=== PATIENT | female | born 1950 | race Caucasian/White ===

== ENCOUNTER 2019-05-17 19:28 | Inpatient (IN) ==
--- NOTE | 2019-05-17 19:45 | Emergency Department Note ---
ED Disposition Clinical Impression: Hypokalemia Acute renal failure Qualifiers: Acute renal failure type: unspecified Qualified Code(s): N17.9 - Acute kidney failure, unspecified Contusion of left hip Qualifiers: Encounter type: initial encounter Qualified Code(s): S70.02XA - Contusion of l eft hip, initial encounter Leukocytosis Qualifiers: Leukocytosis type: unspecified Qualified Code(s): D72.829 - Elevated white blood cell count, unspecified Constipation Qualifiers: Constipation type: unspecified constipation type Qualified Code(s): K59.00 - Constipation, unspecified Disposition: Admitted As Inpatient Condition on Discharge: Serious Referrals: Provider,Referral, MD [Referring] - - Critical Care Critical Care Time: Yes Attestation: On 05/17/19, the high probability of a clinically significant, sudden or life threatening deterioration of the following system(s) required my full and direct attention, intervention and personal management. The time I documented below is in addition to time spent performing reported procedures but includes the following listed in this critical care notation. Total Critical Care Time: 35 Vital system(s) involved:: Metabolic Failure, Renal Failure My critical care processes included: Assessment & monitoring of V/S, Initial and Re-exams, Data Review/Interpretation, Coordinating Care, Medication Orders and management, Documentation Medical Decision Making - Luis Alberto Inquiry Pt receiving controlled substance: No Vital Signs: 05/17/19 19:29 05/17/19 19:58 05/17/19 21:41 Temperature 97.9 F Temperature Source Oral Pulse Rate [Right Apical] 112 H 109 H 108 H Respiratory Rate 20 Blood Pressure [Right Arm] 119/72 128/79 111/43 L Blood Pressure Mean [Right Arm] 87 95 65 02 Sat by Pulse Oximetry 93 L 95 95 Oxygen Delivery Method Nasal Cannula Oxygen Flow Rate (LPM) 2 05/17/19 22:00 05/17/19 22:29 Temperature Temperature Source Pulse Rate [Right Apical] 95 H 98 H Respiratory Rate Blood Pressure [Right Arm] 139/73 139/73 Blood Pressure Mean [Right Arm] 95 95 02 Sat by Pulse Oximetry 95 96 Oxygen Delivery Method Oxygen Flow Rate (LPM) - Lab Data Lab Results 05/17/19 19:34: Urine Color Yellow, Urine Appearance Clear, Urine pH 5.0, Ur Specific [place] >= 1.030, Urine Protein 1+, Urine Glucose (UA) Negative, Urine Ketones Trace, Urine Blood Negative, Urine Nitrate Negative, Urine Bilirubin Negative, Urine Urobilinogen 1.0, Ur Leukocyte Esterase Negative, Urine WBC Occasional, Ur Squamous Epith Cells Occasional, Urine Bacteria 2+ 05/17/19 19:35: WBC 21.6 H*, RBC 5.94 H, Hgb 17.2 H, Hct 55.0 H, MCV 92.5, MCH 28.9, MCHC 31.3 L, RDW 13.5, Plt Count 244, MPV 10.4, Neut % (Auto) 82.0 H, Lymph % (Auto) 12.4, Tripp % (Auto) 5.1, Eos % (Auto) 0.3, Baso % (Auto) 0.3, Neut # (Auto) 17.7 H, Lymph # (Auto) 2.7, Tripp # (Auto) 1.1 H, Eos # (Auto) 0.1, Baso # (Auto) 0.1, Total Counted 100, Neutrophils % (Manual) 80 H, Lymphocytes % (Manual) 15, Monocytes % (Manual) 5, Platelet Estimate Normal, RBC Morphology Normal 05/17/19 19:35: Sodium 135 L, Potassium 2.6 L*, Chloride 91 L, Carbon Dioxide 27, Anion Gap 19.6 H, BUN 68 H, Creatinine 3.93 H, Estimated Creat Clear 23, Estimated GFR 11 L*, Est GFR ( Amer) 14 L*, Glucose 181 H, Calcium 10.0, Total Bilirubin 1.3 H, AST 31, ALT 33, Alkaline Phosphatase 97, Total Protein 9.7 H, Albumin 4.4, Globulin 5.3 H, Albumin/Globulin Ratio 0.8 L 05/17/19 19:35: Total Creatine Kinase 139 05/17/19 19:35: Magnesium 2.6 H 05/17/19 20:15: Lactate 1.6 Result diagrams: 05/17/19 19:35 05/17/19 19:35 Orders (Tests/Meds): ED MEDICATIONS Generic Name Dose Route Start Last Admin Trade Name Freq PRN Reason Stop Dose Admin Sodium Chloride 1,000 mls @ 999 mls/hr 05/17/19 19:45 05/17/19 19:40 Sod Chlor 0.9% 1000ml Bag IV 05/17/19 20:45 999 mls/hr .Q1H1M PARESH Administration ORDERS Category Date Time Status CT abdomen pelvis wo con Stat Cat Scan 05/17/19 20:[address] hip LT wo con Stat Cat Scan 05/17/19 20:56 Taken Lipase Stat Lab 05/17/19 22:38 Ordered Blood Culture Stat Micro 05/17/19 20:15 Received Urine Culture Stat Micro 05/17/19 19:34 Received - Radiology Data #1 Image(s): Chest, Hip Image Reviewed: Yes I reviewed the patient's radiology image Chest x-ray interpreted by Benjamin Jacob M.D. No infiltrate, pneumothorax, pleural effusion, or wide mediastinum. Elevated right diaphragm. Hip x-ray interpreted by Benjamin Jacob MD. Negative for fracture, dislocation, or foreign body. - CT Data CT Scan: Abdomen, Pelvis, Other (Left hip) Time Received: 22:[address] Reviewed: Yes: I have viewed the radiologist's interpretation Findings Narrative: CT scan interpreted by [facility] radiologist. Faxed report received and reviewed: Minimal diverticulosis coli, no findings to suggest diverticulitis. The colon is diffusely distended with gas and fecal material, possible colonic ileus or constipation. No obstructing stones or hydronephrosis. Prominent fatty liver, distended gallbladder and slightly dilated common duct up to 9 mm, but no calcified obstructing stone seen. May be senile ductal ectasia. Left hip: No fracture or dislocation. Likely chronic calcific tendinopathy at the origin of the common hamstring tendon, less likely tiny cortical avulsions. Degenerative disc disease and spondylosis greatest at L5-S1. - ECG Data Tracing #1 EKG interpreted by Benjamin Jacob MD: Rhythm: sinus tachycardia Rate: 112 [place]: Left Ectopy: Premature ventricular contraction Conduction: normal ST Segment Changes: none T Wave Changes: none Q Waves: none No evidence of acute ischemia or injury - Physician Consults Physician Consulted: Anthony Time: 22:32 Reason -: Admission Comment/Response: Agrees to admit the patient to the hospital. We discussed the patient's clinical information, including history, exam, laboratory and radiology results and ED course. Per hospital procedure, I will write temporary bridge inpatient orders on the patient. Specific orders requested by the admitting physician: Normal saline with 20 mEq of potassium per liter. Recheck labs in the morning. No antibiotics. He will address constipation in the morning. General Adult HPI - General Chief complaint: Fall Stated complaint: fall Time Seen by Provider: 05/17/19 20:13 Mode of Arrival: EMS Limitations: No Limitations Description of Symptoms (Recalled from ER Triage Doc. by RN): pt c/o falling on the 05/[address] and crawling up to her house. pt states she has been ea ting only pineapple and drinking watre since then because it hurts too much to stand on her left hip. PT only c/o being very thirsty and L hip pain. - History of Present Illness HPI narrative: Patient states that she fell in her driveway on May 01, injuring her left hip. She denies any other injuries. She says that since then she has pain when she bears weight on her left hip. She says that she has to use objects to support her to get around. She says she has not been eating much since then because of this. She has been drinking fluids but says if she drinks too much she vomits. Decreased urinary output. No bowel movement in 2 weeks. Denies head or neck injury. Denies back injury. Denies fever, cough, URI symptoms. - Related Data Allergies Allergy/AdvReac Type Severity Reaction Status Date / Time INGREDIENT: NO KNOWN - NO Allergy Unknown Uncoded 10/27/17 15:20 KNOWN DRUG ALLERGY [facility] History - Hepatitis A Screen Drug use history?: No High risk sexual behaviors?: No History of sexually transmitted infection?: No Currently employed?: No Childcare worker?: No Do you have indoor plumbing?: Yes Do you have electricity?: Yes Attestation statement:: This patient has been screened for Hepatitis A risk factors. I have reviewed the patient's past medical history: Yes - Social History Alcohol Intake: never Occupational Status: retired ROS Obtained: Yes All systems reviewed & no additional complaints - Constitutional Constitutional: Denies fever(s) - Cardiovascular Cardiovascular: Denies chest pain - Respiratory Respiratory: No dyspnea - Gastrointestinal Gastrointestingal: Reports: constipation, nausea, vomiting. Denies: abdominal pain, diarrhea - Genitourinary Male Genitourinary: Reports as per HPI, Reports decreased urination - Musculoskeletal Musculoskeletal: Reports joint pain (Left hip) Physical Exam - General General appearance: alert, in no apparent distress - Head Head exam: atraumatic, normocephalic - Eye Eye exam: Present: normal appearance, PERRL, EOMI - ENT ENT exam: Present: mucous membranes dry - Neck Neck exam: Present: normal inspection, trachea midline - Chest Chest inspection: Present: normal inspection, symmetric chest wall rise - Respiratory Respiratory exam: Present: normal lung sounds bilaterally, respiratory distress - Cardiovascular Cardiovascular exam: Present: regular rate, normal rhythm, normal heart sounds - Abdominal Exam Abdominal exam: Present: soft, normal bowel sounds. Absent: distention, tenderness - Extremities Exam Extremities exam: Present: normal inspection, full ROM, tenderness (Left posterior hip), normal capillary refill, other (Full range of motion left hip without any apparent pain.) - Neurological Exam Neurological exam: Present: alert, oriented X3, CN II-XII intact. Absent: motor sensory deficit - Psychiatric Psychiatric exam: Present: normal affect, normal mood - Skin Skin exam: Present: warm, dry - Other Other exam information: No shortening or malrotation of left lower extremity. Normal pedal pulses.
[2019-05-17 19:49] LABS: Basophils # 0.1 K/mm3 (0-0.2); Basophils % 0.3 % (0.1-2.0); Eosinophils # 0.1 K/mm3 (0.0-0.4); Eosinophils % 0.3 % (0.1-12.0); Hemoglobin 17.2 g/dL (12.2-16.2); Lymphocytes # 2.7 K/mm3 (0.7-4.5); Lymphocytes % 12.4 % (10-50); Mean Corpuscular HGB Conc 31.3 g/dL (31.8-35.4); Mean Corpuscular Volume 92.5 fl (81-99); Mean Platelet Volume 10.4 fl (7.4-10.4); Monocytes # 1.1 K/mm3 (0.1-1.0); Monocytes % 5.1 % (1.7-9.3); Neutrophils # 17.7 K/mm3 (1.8-7.8); Platelet Count 244 K/mm3 (142-424); Red Blood Count 5.94 M/mm3 (4.20-5.40); Red Cell Distribution Width 13.5 % (11.5-17.5); White Blood Count 21.6 K/mm3 (4.8-10.8)
[2019-05-17 20:02] LABS: Albumin Level 4.4 gm/dL (3.4-5.0); Albumin/Globulin Ratio 0.8 (1.1-1.8); Anion Gap 19.6 mEq/L (5-15); Bilirubin,Total 1.3 mg/dL (0.2-1.0); Globulin 5.3 gm/dl (1.3-3.2); Total Protein,Serum 9.7 gm/dL (6.4-8.2)
[2019-05-17 20:05] LABS: Microscopic, Urine URINE MICROSCOPIC (MICROSCOPIC)
[2019-05-17 20:09] LABS: Appearance,Urine CLEAR (Clear); Blood, Urine Negative (Negative); Color,Urine YELLOW (Yellow); Glucose,Urine (UA) Negative (Negative); Ketones,Urine TRACE (Negative); Leukocyte Esterase,Urine Negative (Negative); Protein,Urine 1+ (Negative); Specific Gravity, Urine >= 1.030 (1.005-1.030)
[2019-05-17 20:15] LABS: Bilirubin,Urine Negative (Negative)
[2019-05-17 20:39] LABS: Bacteria,Urine 2+ /lpf; Squamous Epithelial Cell,Urine Occasional #/hpf (0-5); WBC,Urine Occasional #/hpf (0-3)
[2019-05-17 21:02] LABS: Lymphocytes % 15 % (10-50); Monocytes % 5 % (2-9); Neutrophils % 80 % (42-76); Total Cells Counted 100
[2019-05-17 21:03] LABS: RBC Morphology Normal
[2019-05-17 23:32] LABS: Free T4 (Free Thyroxine) 1.46 ng/dl (0.76-1.46); Thyroid Stimulating Hormone 1.11 uIU/ml (0.358-3.740)
[2019-05-18 06:05] LABS: Basophils # 0.1 K/mm3 (0-0.2); Basophils % 0.6 % (0.1-2.0); Eosinophils # 0.2 K/mm3 (0.0-0.4); Eosinophils % 0.9 % (0.1-12.0); Hematocrit 45.2 % (37.0-47.0); Lymphocytes # 2.9 K/mm3 (0.7-4.5); Lymphocytes % 17.4 % (10-50); Mean Corpuscular HGB Conc 31.6 g/dL (31.8-35.4); Mean Platelet Volume 9.9 fl (7.4-10.4); Monocytes # 0.8 K/mm3 (0.1-1.0); Monocytes % 4.7 % (1.7-9.3); Neutrophils # 12.6 K/mm3 (1.8-7.8); Neutrophils % 76.3 % (37.0-80.0); Platelet Count 179 K/mm3 (142-424); Red Blood Count 4.86 M/mm3 (4.20-5.40); Red Cell Distribution Width 13.5 % (11.5-17.5); White Blood Count 16.5 K/mm3 (4.8-10.8)
[2019-05-18 07:01] LABS: Anion Gap 13.4 mEq/L (5-15)
[2019-05-18 07:32] LABS: Calcium 8.4 mg/dL (8.5-10.1)
[2019-05-18 07:36] LABS: Hemoglobin 14.4 g/dL (12.2-16.2)
--- NOTE | 2019-05-18 08:58 | Pharmacy Consult Notes ---
[facility] Pharmacy VTE Monitoring - Patient Demographics Admission date: 05/18/19 Report Date: 05/18/19 Time: 08:58 Allergies/Adverse Reactions: Patient Allergies No Known Allergies Allergy (Unverified 05/18/19 07:56) Height: 1.73 m Weight: 105.29 kg Patient Problems: Current Active Problems (Updated 05/17/19 @ 22:34 by Benjamin Jacob MD) Acute renal failure (Acute) Contusion of left hip (Acute) Leukocytosis (Acute) Hypokalemia (Acute) Constipation (Acute) - VTE Risk Labs: VTE Related Lab Results Hgb 14.4 g/dL (12.2-16.2) D 05/18/19 05:40 Hct 45.2 % (37.0-47.0) 05/18/19 05:40 Plt Count 179 K/mm3 (142-424) D 05/18/19 05:40 BUN 56 mg/dL (7-18) H 05/18/19 05:40 Creatinine 2.15 mg/dL (0.55-1.02) H D 05/18/19 05:40 Estimated Creat Clear 40 mL/min (50-200) 05/18/19 05:40 Was VTE Risk Assessment Performed: Yes VTE Score: 6 VTE Risk Level: Moderate Risk Clinical Trial Participant: No - Prophylaxis VTE Prophylaxis Ordered?: Yes Types of VTE Prophylaxis: TEDS Knee High Location of Applied Device: Bilateral Lower Extremeties
--- NOTE | 2019-05-18 09:13 | History & Physical Report ---
*Admission Date: 05/18/19 <ParekhAnabel - 05/18/19 09:27> *Chief complaint: Unable to bear weight on her left leg. <IglesiaCandaceAnabel 05/18/19 09:27> *History of present illness: Ms. Rain is a 68-year-old patient with a history of depression, hypothyroidism, hypertension, GERD, and hyperlipidemia who was brought to [facility] emergency room via EMS when she was unable to walk for 2 to 3 weeks. She states she laid in a lump for this time and ate and drank minimally. She states her bowels did not move. She is unable to tell me if she was incontinent of urine or if she was able to go to the bathroom. She describes vomiting after drinking water. She describes eating pineapple. Patient states this started about 3 weeks ago when she slid to the ground landing on her buttocks. She states it was not a fall. She was unable to get up and walk and therefore she scooted to her home. She states she always locks all the doors and therefore no one could get in. She did finally find her phone and was able to contact a friend who notified EMS. They were able to get in through a window and bring her to the hospital. With evaluation in the emergency room x-rays and CTs did not reveal any fractures. She was found to be in acute renal failure and with hypokalemia. She was thus admitted for further evaluation and treatment. This a.m. patient appears comfortable. She was brought her breakfast which she did not like. She denies nausea and has not vomited since admission. She has a Mcarthur catheter. Bowels have not moved. <Anabel Parekh - 05/18/19 09:27> [facility] History Medical History: Reports:: Hyperlipidemia, Hypertension Denies:: Cancer, Diabetes Mellitus Type 1, Diabetes Mellitus Type 2, Internal Pacemaker, MRSA <Anabel Parekh 05/18/19 09:27> *Have you ever received a pneumonia vaccine?: No <Anabel Parekh 05/18/19:27> *Have you received a flu vaccine this season?: No <Anabel Parekh 05/18/19 09:27> Other Surgeries: Yes: Cardiac Catheterization. No: Pacemaker <Anabel Parekh 07/10/19 09:27> - *Social History Alcohol Intake: never <Anabel Parekh - 05/18/19 09:27> *Occupational Status:: retired <Anabel Parekh - 05/18/19 09:27> Housing: other <Anabel Parekh - 05/18/19 09:27> *Travel in the last 8 weeks: None <Anabel Parekh - 05/18/19 09:27> - Psychiatric History Expresses thoughts of harming self/others: None <Anabel Parekh - 05/18/19 09:27> Suicide Plan Description: No Plan <Anabel Parekh - 05/18/19 09:27> Family Hx:: Stroke <Candace Parekhhy - 05/18/19 09:27> Meds Home Medications Medication Instructions Recorded Confirmed Type Citalopram Hydrobromide [Celexa] 20 mg PO BID 05/17/19 05/18/19 History Hydrocodone/Acetaminophen 1 each PO Q6HP PRN 05/17/19 05/18/19 History [Hydrocodone-Acetamin 7.5-300] Levothyroxine Sodium 25 mcg PO DAILY 05/17/19 05/17/19 History [Levothyroxine 25mcg (0.025mg) Tab] Lovastatin 40 mg PO DAILY 05/17/19 05/17/19 History Omeprazole [Omeprazole 20mg 20 mg PO DAILY 05/17/19 05/17/19 History Capsule] hydroCHLOROthiazide [HCTZ 25mg 25 mg PO DAILY 05/17/19 05/17/19 History tab] <Ubaldo Cruz - 05/18/19 09:57> Allergies Allergy/AdvReac Type Severity Reaction Status Date / Time No Known Allergies Allergy Unverified 05/18/19 07:56 <Ubaldo Cruz - 05/18/19 09:57> Exam Vital signs and Labs for Last 24 Hours: Temp Pulse Resp BP Pulse Ox 99.9 F H 106 H 17 114/58 L 91 L 05/18/19 08:00 05/18/19 08:00 05/18/19 08:00 05/18/19 08:00 05/18/19 08:00 Laboratory Results - last 24 hr 05/17/19 19:34: Urine Color Yellow, Urine Appearance Clear, Urine pH 5.0, Ur Specific Beals >= 1.030, Urine Protein 1+, Urine Glucose (UA) Negative, Urine Ketones Trace, Urine Blood Negative, Urine Nitrate Negative, Urine Bilirubin Negative, Urine Urobilinogen 1.0, Ur Leukocyte Esterase Negative, Urine WBC Occasional, Ur Squamous Epith Cells Occasional, Urine Bacteria 2+ 05/17/19 19:35: WBC 21.6 H*, RBC 5.94 H, Hgb 17.2 H, Hct 55.0 H, MCV 92.5, MCH 28.9, MCHC 31.3 L, RDW 13.5, Plt Count 244, MPV 10.4, Neut % (Auto) 82.0 H, Lymph % (Auto) 12.4, [place] % (Auto) 5.1, Eos % (Auto) 0.3, Baso % (Auto) 0.3, Neut # (Auto) 17.7 H, Lymph # (Auto) 2.7, [place] # (Auto) 1.1 H, Eos # (Auto) 0.1, Baso # (Auto) 0.1, Total Counted 100, Neutrophils % (Manual) 80 H, Lymphocytes % (Manual) 15, Monocytes % (Manual) 5, Platelet Estimate Normal, RBC Morphology Normal 05/17/19 19:35: Sodium 135 L, Potassium 2.6 L*, Chloride 91 L, Carbon Dioxide 27, Anion Gap 19.6 H, BUN 68 H, Creatinine 3.93 H, Estimated Creat Clear 23, Estimated GFR 11 L*, Est GFR ( Amer) 14 L*, Glucose 181 H, Calcium 10.0, Total Bilirubin 1.3 H, AST 31, ALT 33, Alkaline Phosphatase 97, Total Protein 9.7 H, Albumin 4.4, Globulin 5.3 H, Albumin/Globulin Ratio 0.8 L 05/17/19 19:35: Total Creatine Kinase 139 05/17/19 19:35: Magnesium 2.6 H 05/17/19 19:35: Lipase 172, TSH 1.11, Free T4 1.46 05/17/19 20:15: Lactate 1.6 05/18/19 05:40: WBC 16.5 H, RBC 4.86, Hgb 14.4 D, Hct 45.2, MCV 93.0, MCH 29.4, MCHC 31.6 L, RDW 13.5, Plt Count 179 D, MPV 9.9, Neut % (Auto) 76.3, Lymph % (Auto) 17.4, [place] % (Auto) 4.7, Eos % (Auto) 0.9, Baso % (Auto) 0.6, Neut # (Auto) 12.6 H, Lymph # (Auto) 2.9, [place] # (Auto) 0.8, Eos # (Auto) 0.2, Baso # (Auto) 0.1 05/18/19 05:40: Sodium 136, Potassium 2.4 L*, Chloride 98, Carbon Dioxide 27, Anion Gap 13.4, BUN 56 H, Creatinine 2.15 H D, Estimated Creat Clear 40, Estimated GFR 23 L, Est GFR ( Amer) 27 L D, Glucose 110 H D, Calcium 8.4 L D <Ubaldo Cruz - 05/18/19 09:57> Temp Pulse Resp BP Pulse Ox 99.9 F H 106 H 17 114/58 L 91 L 05/18/19 08:00 05/18/19 08:00 05/18/19 08:00 05/18/19 08:00 05/18/19 08:00 Laboratory Results - last 24 hr 05/17/19 19:34: Urine Color Yellow, Urine Appearance Clear, Urine pH 5.0, Ur Specific Beals >= 1.030, Urine Protein 1+, Urine Glucose (UA) Negative, Urine Ketones Trace, Urine Blood Negative, Urine Nitrate Negative, Urine Bilirubin Negative, Urine Urobilinogen 1.0, Ur Leukocyte Esterase Negative, Urine WBC Occasional, Ur Squamous Epith Cells Occasional, Urine Bacteria 2+ 05/17/19 19:35: WBC 21.6 H*, RBC 5.94 H, Hgb 17.2 H, Hct 55.0 H, MCV 92.5, MCH 28.9, MCHC 31.3 L, RDW 13.5, Plt Count 244, MPV 10.4, Neut % (Auto) 82.0 H, Lymph % (Auto) 12.4, [place] % (Auto) 5.1, Eos % (Auto) 0.3, Baso % (Auto) 0.3, Neut # (Auto) 17.7 H, Lymph # (Auto) 2.7, [place] # (Auto) 1.1 H, Eos # (Auto) 0.1, Baso # (Auto) 0.1, Total Counted 100, Neutrophils % (Manual) 80 H, Lymphocytes % (Manual) 15, Monocytes % (Manual) 5, Platelet Estimate Normal, RBC Morphology Normal 05/17/19 19:35: Sodium 135 L, Potassium 2.6 L*, Chloride 91 L, Carbon Dioxide 27, Anion Gap 19.6 H, BUN 68 H, Creatinine 3.93 H, Estimated Creat Clear 23, Estimated GFR 11 L*, Est GFR ( Amer) 14 L*, Glucose 181 H, Calcium 10.0, Total Bilirubin 1.3 H, AST 31, ALT 33, Alkaline Phosphatase 97, Total Protein 9.7 H, Albumin 4.4, Globulin 5.3 H, Albumin/Globulin Ratio 0.8 L 05/17/19 19:35: Total Creatine Kinase 139 05/17/19 19:35: Magnesium 2.6 H 05/17/19 19:35: Lipase 172, TSH 1.11, Free T4 1.46 05/17/19 20:15: Lactate 1.6 05/18/19 05:40: WBC 16.5 H, RBC 4.86, Hgb 14.4 D, Hct 45.2, MCV 93.0, MCH 29.4, MCHC 31.6 L, RDW 13.5, Plt Count 179 D, MPV 9.9, Neut % (Auto) 76.3, Lymph % (Auto) 17.4, [place] % (Auto) 4.7, Eos % (Auto) 0.9, Baso % (Auto) 0.6, Neut # (Auto) 12.6 H, Lymph # (Auto) 2.9, [place] # (Auto) 0.8, Eos # (Auto) 0.2, Baso # (Auto) 0.1 05/18/19 05:40: Sodium 136, Potassium 2.4 L*, Chloride 98, Carbon Dioxide 27, Anion Gap 13.4, BUN 56 H, Creatinine 2.15 H D, Estimated Creat Clear 40, Estimated GFR 23 L, Est GFR ( Amer) 27 L D, Glucose 110 H D, Calcium 8.4 L D <Anabel Parekh - 05/18/19 09:27> I & O for Last 24 hours: Intake & Output 05/15/19 05/16/19 05/17/19 05/18/19 11:59 11:59 11:59 11:59 Intake Total 2753 / 2753 Output Total 500 / 500 Balance 2253 / 2253 Weight 232 lb 2 oz <Ubaldo Cruz - 05/18/19 09:57> Intake & Output 05/15/19 05/16/19 05/17/19 05/18/19 11:59 11:59 11:59 11:59 Intake Total 1160 / 1160 Output Total 500 / 500 Balance 660 / 660 Weight 232 lb 2 oz <Anabel Parekh - 05/18/19 09:27> Radiology Reports for the Last 24 Hours: 05/17/2019 hip x-ray IMPRESSION: No acute finding 05/17/2019 chest x-ray IMPRESSION: No acute finding 05/17/2019 CT of the abdomen and Pelvis IMPRESSION: 1. Distended gallbladder with mild prominence of the common bile duct. Gallbladder ultrasound may be of further value. 2. Mild amount of retained colonic feces. 3. Fatty liver 05/17/2019 CT of the left hip IMPRESSION: 1. No acute fracture. 2. Mild osteoarthritis of left hip <IglesiaAnabel - 05/18/19 09:27> - Constitutional no acute distress <Anabel Parekh - 05/18/19 09:27> Comments: Lying on her right side and appears comfortable <Anabel Parekh 05/18/19 09:27> - *Routine HEENT Exam Head: Present: normocephalic, atraumatic <Anabel Parekh - 05/18/19 09:27> Eye: Present: PERRL. Absent: conjunctival icterus, scleral injection <Anabel Parekh 05/18/19 09:27> ENT: Present: mucous membranes dry, oropharynx clear, nares patent <Anabel Parekh 05/18/19 09:27> - *Routine Neck Exam Present: supple. Absent: carotid bruit, lymphadenopathy, thyromegaly <Anabel Parekh 05/18/19 09:27> - *Routine Respiratory Exam Present: CTA bilaterally (Anteriorly and posteriorly) <Anabel Parekh 05/18/19 09:27> - *Routine Cardiovascular Exam Present: RRR <Anabel Parekh 05/18/19 09:27> - *Routine Abdominal Exam Present: soft (Diminished bowel sounds). Absent: tenderness, guarding <Anabel Parekh 05/18/19 09:27> Comments: Obese. Mcarthur catheter. <Anabel Parekh 05/18/19 09:27> - *Routine Extremities Exam Absent: edema, calf tenderness <Anabel Parekh 05/18/19 09:27> Comments: Moves her legs without difficulty. She is able to turn herself slowly in the bed. Left buttock tender to palpation. No edema or ecchymosis noted on hips buttocks or legs. <Anabel Parekh 05/18/19 09:27> - *Routine Skin Exam Present: erythema (Beneath the abdominal folds and groin area bilaterally; very inflamed) <Anabel Parekh 05/18/19 09:27> - *Routine Neurological Exam Present: alert, oriented X3 <Anabel Parekh 05/18/19 09:27> Assessment and Plan (1) Skin candidiasis Current visit: Yes Status: Acute Category: Medical Code(s): B37.2 - Candidiasis of skin and nail (2) Acute renal failure Current visit: Yes Status: Acute Qualifiers: Acute renal failure type: unspecified Qualified Code(s): N17.9 - Acute kidney failure, unspecified Category: Medical Code(s): N17.9 - Acute kidney failure, unspecified (3) Constipation Current visit: Yes Status: Acute Qualifiers: Constipation type: unspecified constipation type Qualified Code(s): K59.00 - Constipation, unspecified Category: Medical Code(s): K59.00 - Constipation, unspecified (4) Contusion of left hip Current visit: Yes Status: Acute Qualifiers: Encounter type: initial encounter Qualified Code(s): S70.02XA - Contusion of left hip, initial encounter Category: Medical Code(s): S70.02XA - Contusion of left hip, initial encounter (5) Hypokalemia Current visit: Yes Status: Acute Category: Medical Code(s): E87.6 - Hypokalemia (6) Leukocytosis Current visit: Yes Status: Acute Qualifiers: Leukocytosis type: unspecified Qualified Code(s): D72.829 - Elevated white blood cell count, unspecified Category: Medical Code(s): D72.829 - Elevated white blood cell count, unspecified (7) Vomiting Current visit: Yes Status: Acute Category: Medical Code(s): R11.10 - Vomiting, unspecified (8) Hypothyroidism Current visit: Yes Status: Chronic Category: Medical Code(s): E03.9 - Hypothyroidism, unspecified (9) Hypertension Current visit: Yes Status: Chronic Category: Medical Code(s): I10 - Essential (primary) hypertension (10) Depression Current visit: Yes Status: Chronic Category: Medical Code(s): F32.9 - Major depressive disorder, single episode, unspecified (11) GERD (gastroesophageal reflux disease) Current visit: Yes Status: Chronic Category: Medical Code(s): K21.9 - Gastro-esophageal reflux disease without esophagitis <Anabel Parekh - 05/18/19 09:08> (1) Fall at home Current visit: Yes Status: Acute Category: Medical Code(s): W19.XXXA - Unspecified fall, initial encounter; Y92.009 - Unspecified place in unspecified non-institutional (private) residence as the place of occurrence of the external cause (2) Contusion of left hip Current visit: Yes Status: Acute Qualifiers: Encounter type: initial encounter Qualified Code(s): S70.02XA - Contusion of left hip, initial encounter Category: Medical Code(s): S70.02XA - Contusion of left hip, initial encounter (3) Impaired mobility Current visit: Yes Status: Acute Category: Medical Code(s): Z74.09 - Other reduced mobility (4) Acute renal failure Current visit: Yes Status: Acute Qualifiers: Acute renal failure type: unspecified Qualified Code(s): N17.9 - Acute kidney failure, unspecified Category: Medical Code(s): N17.9 - Acute kidney failure, unspecified (5) Hypokalemia Current visit: Yes Status: Acute Category: Medical Code(s): E87.6 - Hypokalemia (6) Skin candidiasis Current visit: Yes Status: Acute Category: Medical Code(s): B37.2 - Candidiasis of skin and nail (7) Constipation Current visit: Yes Status: Acute Qualifiers: Constipation type: unspecified constipation type Qualified Code(s): K59.00 - Constipation, unspecified Category: Medical Code(s): K59.00 - Constipation, unspecified (8) Leukocytosis Current visit: Yes Status: Acute Qualifiers: Leukocytosis type: unspecified Qualified Code(s): D72.829 - Elevated white blood cell count, unspecified Category: Medical Code(s): D72.829 - Elevated white blood cell count, un specified (9) Vomiting Current visit: Yes Status: Acute Category: Medical Code(s): R11.10 - Vomiting, unspecified (10) Hypothyroidism Current visit: Yes Status: Chronic Category: Medical Code(s): E03.9 - Hypothyroidism, unspecified (11) Hypertension Current visit: Yes Status: Chronic Category: Medical Code(s): I10 - Essential (primary) hypertension (12) Depression Current visit: Yes Status: Chronic Category: Medical Code(s): F32.9 - Major depressive disorder, single episode, unspecified (13) GERD (gastroesophageal reflux disease) Current visit: Yes Status: Chronic Category: Medical Code(s): K21.9 - Gastro-esophageal reflux disease without esophagitis <AnthonyUbaldo Ashok - 05/18/19 09:57> - Assessment and plan all Dx Assessment and Plan for all problems:: Patient seen and examined. She denies pain while lying in bed but has difficulty ambulating due to hip pain. SHe does not like the cardiac diet. Her renal failure appears to be acute pre-renal related to dehydration. No baseline labs for comparison but repeat labs this AM are improving with hydration with the exception of her hypokalemia which will addressed further Will obtain PT and ortho consults today. Monitor labs. <Ubaldo Cruz - 05/18/19 09:57> Orthopedic consult. Physical therapy to see patient today. Rounds of IV potassium and will start p.o. potassium. Continue with IV fluids. Monitor CBC and BMP. <Anabel Parekh - 05/18/19 09:27>
[2019-05-18 10:13] LABS: Eosinophils % 1 % (0-3); Lymphocytes % 20 % (10-50); Monocytes % 4 % (2-9); Neutrophils % 75 % (42-76); Total Cells Counted 100
[2019-05-18 10:14] LABS: RBC Morphology Normal
--- NOTE | 2019-05-18 14:06 | Consult Report ---
*Admission Date: 05/18/19 *Reason for consult:: Unable to weight-bear on left leg following a fall 2 weeks ago *History of present illness: Ms. Rain is a 68-year-old patient with a history of depression, hypot hyroidism, hypertension, GERD, and hyperlipidemia who was brought to [facility] emergency room via EMS yesterday with complaints of left hip pain and difficulty weightbearing on the left lower extremity. She states she injured her left hip region about 2 or 3 weeks ago when she settled down landing on her buttocks. Following this she was unable to get up and walk and therefore she scooted around the house. She states she laid in a lump for this time and ate and drank minimally. She states she always locks all the doors and therefore no one could get in. She did finally find her phone and was able to contact a friend who notified EMS. They were able to get in through a window and bring her to the hospital. Evaluation in the emergency room including x-rays and CTs did not reveal any acute injuries or fractures. She was found to be in acute renal failure and with hypokalemia. She was thus admitted for further evaluation and treatment. Following admission patient was evaluated by PT this morning and she apparently walked with the help of PT using a walker and manage fairly well. She still complaining of pain over the posterior aspect of the left hip/left side of the pelvis which is worse with attempts to move her left lower extremity. No history of any radicular symptoms or distal tingling or numbness. No history of any fevers, chills or rigors. No history of any previous significant back or hip problems. She lives by herself. Review of Systems - Review of Systems Review of systems:: pertinent systems reviewed and negative unless documented below - Constitutional Reports body ache(s), Denies fever(s) - *Cardiovascular Denies chest pain, Denies shortness of breath - *Respiratory Denies shortness of breath - *Gastrointestinal Denies abdominal pain - *Musculoskeletal Reports abnormal walking, Reports joint pain, Reports limited joint movement - *Neurologic Reports abnormal walking, Denies seizure-like activity [facility] History I have reviewed the patient's past medical history: Yes Medical History: Reports:: Hyperlipidemia, Hypertension Denies:: Cancer, Diabetes Mellitus Type 1, Diabetes Mellitus Type 2, Internal Pacemaker, MRSA *Have you ever received a pneumonia vaccine?: No *Have you received a flu vaccine this season?: No Other Surgeries: Yes: Cardiac Catheterization. No: Pacemaker - *Social History Alcohol Intake: never *Occupational Status:: retired Housing: other *Travel in the last 8 weeks: None - Psychiatric History Expresses thoughts of harming self/others: None Suicide Plan Description: No Plan Family Hx:: Stroke Meds Home Medications Medication Instructions Recorded Confirmed Type Citalopram Hydrobromide [Celexa] 20 mg PO BID 05/17/19 05/18/19 History Hydrocodone/Acetaminophen 1 each PO Q6HP PRN 05/17/19 05/18/19 History [Hydrocodone-Acetamin 7.5-300] Levothyroxine Sodium 25 mcg PO DAILY 05/17/19 05/17/19 History [Levothyroxine 25mcg (0.025mg) Tab] Lovastatin 40 mg PO DAILY 05/17/19 05/17/19 History Omeprazole [Omeprazole 20mg 20 mg PO DAILY 05/17/19 05/17/19 History Capsule] hydroCHLOROthiazide [HCTZ 25mg 25 mg PO DAILY 05/17/19 05/17/19 History tab] Allergies Allergy/AdvReac Type Severity Reaction Status Date / Time No Known Allergies Allergy Unverified 05/18/19 07:56 Exam Vital signs and Labs for Last 24 Hours: Temp Pulse Resp BP Pulse Ox 99.9 F H 106 H 17 114/58 L 91 L 05/18/19 08:00 05/18/19 08:00 05/18/19 08:00 05/18/19 08:00 05/18/19 08:00 Laboratory Results - last 24 hr 05/17/19 19:34: Urine Color Yellow, Urine Appearance Clear, Urine pH 5.0, Ur Specific [place] >= 1.030, Urine Protein 1+, Urine Glucose (UA) Negative, Urine Ketones Trace, Urine Blood Negative, Urine Nitrate Negative, Urine Bilirubin Negative, Urine Urobilinogen 1.0, Ur Leukocyte Esterase Negative, Urine WBC Occasional, Ur Squamous Epith Cells Occasional, Urine Bacteria 2+ 05/17/19 19:35: WBC 21.6 H*, RBC 5.94 H, Hgb 17.2 H, Hct 55.0 H, MCV 92.5, MCH 28.9, MCHC 31.3 L, RDW 13.5, Plt Count 244, MPV 10.4, Neut % (Auto) 82.0 H, Lymph % (Auto) 12.4, [place] % (Auto) 5.1, Eos % (Auto) 0.3, Baso % (Auto) 0.3, Neut # (Auto) 17.7 H, Lymph # (Auto) 2.7, [place] # (Auto) 1.1 H, Eos # (Auto) 0.1, Baso # (Auto) 0.1, Total Counted 100, Neutrophils % (Manual) 80 H, Lymphocytes % (Manual) 15, Monocytes % (Manual) 5, Platelet Estimate Normal, RBC Morphology Normal 05/17/19 19:35: Sodium 135 L, Potassium 2.6 L*, Chloride 91 L, Carbon Dioxide 27, Anion Gap 19.6 H, BUN 68 H, Creatinine 3.93 H, Estimated Creat Clear 23, Estimated GFR 11 L*, Est GFR ( Amer) 14 L*, Glucose 181 H, Calcium 10.0, Total Bilirubin 1.3 H, AST 31, ALT 33, Alkaline Phosphatase 97, Total Protein 9.7 H, Albumin 4.4, Globulin 5.3 H, Albumin/Globulin Ratio 0.8 L 05/17/19 19:35: Total Creatine Kinase 139 05/17/19 19:35: Magnesium 2.6 H 05/17/19 19:35: Lipase 172, TSH 1.11, Free T4 1.46 05/17/19 20:15: Lactate 1.6 05/18/19 05:40: WBC 16.5 H, RBC 4.86, Hgb 14.4 D, Hct 45.2, MCV 93.0, MCH 29.4, MCHC 31.6 L, RDW 13.5, Plt Count 179 D, MPV 9.9, Neut % (Auto) 76.3, Lymph % (Auto) 17.4, [place] % (Auto) 4.7, Eos % (Auto) 0.9, Baso % (Auto) 0.6, Neut # (Auto) 12.6 H, Lymph # (Auto) 2.9, [place] # (Auto) 0.8, Eos # (Auto) 0.2, Baso # (Auto) 0.1, Total Counted 100, Neutrophils % (Manual) 75, Lymphocytes % (Manual) 20, Monocytes % (Manual) 4, Eosinophils % (Manual) 1, Platelet Estimate Normal, RBC Morphology Normal 05/18/19 05:40: Sodium 136, Potassium 2.4 L*, Chloride 98, Carbon Dioxide 27, Anion Gap 13.4, BUN 56 H, Creatinine 2.15 H D, Estimated Creat Clear 40, Estimated GFR 23 L, Est GFR ( Amer) 27 L D, Glucose 110 H D, Calcium 8.4 L D I & O for Last 24 hours: Intake & Output 05/16/19 05/17/19 05/18/19 05/19/19 11:59 11:59 11:59 11:59 Intake Total 2753 / 2753 460 / 460 Output Total 500 / 500 Balance 2253 / 2253 460 / 460 Weight 232 lb 2 oz - Constitutional no acute distress, obese, cooperative - *Routine HEENT Exam Head: Present: normocephalic, atraumatic Eye: Present: EOMI ENT: Present: mucous membranes moist - *Routine Neck Exam Present: supple, full ROM, trachea midline. Absent: lymphadenopathy - *Routine Respiratory Exam Present: CTA bilaterally. Absent: respiratory distress - *Routine Cardiovascular Exam Present: RRR, Normal S1, Normal S2 - *Routine Abdominal Exam Present: soft, normoactive bowel sounds. Absent: organomegaly - *Routine Extremities Exam Comments: On examination of lower extremities, the limb lengths are equal and the alignment is neutral. On examination of the left hip, the skin is normal. There is no swelling, erythema or ecchymosis. There is no deformity and no scars noted. She has tenderness over the posterior aspect of the left hip and left side of pelvis. Nontender over the greater trochanter, anterior hip, iliac crest and the femur. She has full range of hip movements but reports some discomfort over the posterior hip area during rotations. Babar test is positive. No instability noted. Good strength demonstrated around the hip joint bilaterally. Examinatio n of her left thigh, knee joint, lower leg and foot and ankle are unremarkable. Sensation is intact light touch throughout. Dorsalis pedis and posterior tibialis pulses are 2+ bilaterally. No pedal edema noticed. Thigh and calf are soft and nontender. Homans sign is negative; clinically no evidence of DVT noted. Examination of the right hip is essentially unremarkable. Examination of lumbosacral spine and both knee joints is within normal limits. Diagnostic Imaging: X-rays of her pelvis AP view and the LEFT hip AP and lateral views and noncontrast CT scan of the left hip performed at [facility] were reviewed along with radiologist report. XR hip LT 2-3V w/pelvis FINDINGS: No fracture or dislocation is evident. No significant degenerative change. No lytic or blastic change. Unremarkable soft tissues Mcarthur catheter is present IMPRESSION: No acute finding Dictated By: Nils Fields MD 05/17/192201 CT hip LT wo con IMPRESSION: 1. No acute fracture. 2. Mild osteoarthritis of left hip Dictated By: Nils Fields MD 05/18/19 0714 - Routine Back/Spine/Pelvis Exam Back/Spine: Absent: paraspinal tenderness Pelvis: Present: buttock tenderness (Left), SI joint tenderness (Left). Absent: buttock ecchymosis, buttock swelling - *Routine Skin Exam Present: intact, warm, normal turgor - *Routine Neurological Exam Present: alert, oriented X3, moving all extremities, normal tone. Absent: sensory deficit, motor deficit - Routine Psychiatric Exam Present: normal affect, cooperative Results - Labs Result Diagrams: 05/18/19 05:40 05/18/19 05:40 Labs: Abnormal lab results 05/17/19 05/17/19 05/17/19 Range/Units 19:35 19:35 19:35 WBC 21.6 H* (4.8-10.8) K/mm3 RBC 5.94 H (4.20-5.40) M/mm3 Hgb 17.2 H (12.2-16.2) g/dL Hct 55.0 H (37.0-47.0) % MCHC 31.3 L (31.8-35.4) g/dL Neut % (Auto) 82.0 H (37.0-80.0) % Neut # (Auto) 17.7 H (1.8-7.8) K/mm3 [place] # (Auto) 1.1 H (0.1-1.0) K/mm3 Neutrophils % (Manual) 80 H (42-76) % Sodium 135 L (136-145) mmol/L Potassium 2.6 L* (3.5-5.1) mmoL/L Chloride 91 L (98-107) mmol/L Anion Gap 19.6 H (5-15) mEq/L BUN 68 H (7-18) mg/dL Creatinine 3.93 H (0.55-1.02) mg/dL Estimated GFR 11 L* (>60) ml/min Est GFR ( Amer) 14 L* (>60) ML/MIN Glucose 181 H (74-106) mg/dL Calcium (8.5-10.1) mg/dL Magnesium 2.6 H (1.4-2.2) mg/dL Total Bilirubin 1.3 H (0.2-1.0) mg/dL Total Protein 9.7 H (6.4-8.2) gm/dL Globulin 5.3 H (1.3-3.2) gm/dl Albumin/Globulin Ratio 0.8 L (1.1-1.8) 05/18/19 05/18/19 Range/Units 05:40 05:40 WBC 16.5 H (4.8-10.8) K/mm3 RBC (4.20-5.40) M/mm3 Hgb (12.2-16.2) g/dL Hct (37.0-47.0) % MCHC 31.6 L (31.8-35.4) g/dL Neut % (Auto) (37.0-80.0) % Neut # (Auto) 12.6 H (1.8-7.8) K/mm3 [place] # (Auto) (0.1-1.0) K/mm3 Neutrophils % (Manual) (42-76) % Sodium (136-145) mmol/L Potassium 2.4 L* (3.5-5.1) mmoL/L Chloride (98-107) mmol/L Anion Gap (5-15) mEq/L BUN 56 H (7-18) mg/dL Creatinine 2.15 H D (0.55-1.02) mg/dL Estimated GFR 23 L (>60) ml/min Est GFR ( Amer) 27 L D (>60) ML/MIN Glucose 110 H D (74-106) mg/dL Calcium 8.4 L D (8.5-10.1) mg/dL Magnesium (1.4-2.2) mg/dL Total Bilirubin (0.2-1.0) mg/dL Total Protein (6.4-8.2) gm/dL Globulin (1.3-3.2) gm/dl Albumin/Globulin Ratio (1.1-1.8) H & H 05/17/19 05/18/19 Range/Units 19:35 05:40 Hgb 17.2 H 14.4 D (12.2-16.2) g/dL Hct 55.0 H 45.2 (37.0-47.0) % All other labs normal. Assessment and Plan (1) Fall at home Current visit: Yes Status: Acute Category: Medical Code(s): W19.XXXA - Unspecified fall, initial encounter; Y92.009 - Unspecified place in unspecified non-institutional (private) residence as the place of occurrence of the external cause (2) Contusion of left hip Current visit: Yes Status: Acute Qualifiers: Encounter type: initial encounter Qualified Code(s): S70.02XA - Contusion of left hip, initial encounter Category: Medical Code(s): S70.02XA - Contusion of left hip, initial encounter (3) Impaired mobility Current visit: Yes Status: Acute Category: Medical Code(s): Z74.09 - Other reduced mobility (4) Acute renal failure Current visit: Yes Status: Acute Qualifiers: Acute renal failure type: unspecified Qualified Code(s): N17.9 - Acute kidney failure, unspecified Category: Medical Code(s): N17.9 - Acute kidney failure, unspecified (5) Hypokalemia Current visit: Yes Status: Acute Category: Medical Code(s): E87.6 - Hypokalemia (6) Skin candidiasis Current visit: Yes Status: Acute Category: Medical Code(s): B37.2 - Candidiasis of skin and nail (7) Constipation Current visit: Yes Status: Acute Qualifiers: Constipation type: unspecified constipation type Qualified Code(s): K59.00 - Constipation, unspecified Category: Medical Code(s): K59.00 - Constipation, unspecified (8) Leukocytosis Current visit: Yes Status: Acute Qualifiers: Leukocytosis type: unspecified Qualified Code(s): D72.829 - Elevated white blood cell count, unspecified Category: Medical Code(s): D72.829 - Elevated white blood cell count, unspecified (9) Vomiting Current visit: Yes Status: Acute Category: Medical Code(s): R11.10 - Vomiting, unspecified (10) Hypothyroidism Current visit: Yes Status: Chronic Category: Medical Code(s): E03.9 - Hypothyroidism, unspecified (11) Hypertension Current visit: Yes Status: Chronic Category: Medical Code(s): I10 - Essential (primary) hypertension (12) Depression Current visit: Yes Status: Chronic Category: Medical Code(s): F32.9 - Major depressive disorder, single episode, unspecified (13) GERD (gastroesophageal reflux disease) Current visit: Yes Status: Chronic Category: Medical Code(s): K21.9 - Gastro-esophageal reflux disease without esophagitis - Assessment and plan all Dx Assessment and Plan for all problems:: I have reviewed the clinical and imaging findings with the patient. I have discussed the diagnosis, natural history and management options in detail including both nonsurgical and surgical. Clinically and radiologically there is no evidence of any acute bony or joint injury. I understand that she mobilized fairly well this morning with the physical therapy using a walker. Given that n o surgical intervention is required in this situation, I have recommended conservative management including rest, activity modification, local icing, continue mobilization weightbearing as tolerated with a walker, NSAIDs or simple pain medication as appropriate per primary care physician, range of motion and strengthening exercises, physical therapy and local modalities treatment. All the questions were answered and the patient verbalized a good understanding. From an orthopedic standpoint, patient can be discharged as appropriate when medically stable. I would like to see her for follow-up in my office in couple of weeks time with repeat x-rays of her pelvis and left hip. Please feel free to call our office at [phone] or via the hospital breakdown mill operator [phone] for any orthopedic questions or concerns.
[2019-05-19 06:58] LABS: Anion Gap 9.7 mEq/L (5-15); Calcium 8.1 mg/dL (8.5-10.1)
[2019-05-19 07:43] LABS: Basophils # 0.1 K/mm3 (0-0.2); Basophils % 0.4 % (0.1-2.0); Eosinophils # 0.2 K/mm3 (0.0-0.4); Eosinophils % 2.1 % (0.1-12.0); Hematocrit 41.2 % (37.0-47.0); Hemoglobin 12.6 g/dL (12.2-16.2); Lymphocytes # 2.7 K/mm3 (0.7-4.5); Lymphocytes % 24.7 % (10-50); Mean Corpuscular HGB Conc 30.5 g/dL (31.8-35.4); Mean Corpuscular Volume 96.8 fl (81-99); Monocytes # 0.6 K/mm3 (0.1-1.0); Monocytes % 5.1 % (1.7-9.3); Neutrophils # 7.4 K/mm3 (1.8-7.8); Neutrophils % 67.5 % (37.0-80.0); Platelet Count 156 K/mm3 (142-424); Red Blood Count 4.26 M/mm3 (4.20-5.40); Red Cell Distribution Width 13.6 % (11.5-17.5); White Blood Count 10.9 K/mm3 (4.8-10.8)
--- NOTE | 2019-05-19 08:19 | Progress Note ---
<Cydney Joaquin - Last Filed: 05/19/19 08:17> Internal Medicine - PN: Subj *Date: 05/19/19 *Time: 08:17 Interval history: Patient states she does feel better today. She rested off and on throughout the night and did not eat breakfast as she felt the food was "nasty." She denies any pain today. Exam Vital signs and Labs for Last 24 Hours: Temp Pulse Resp BP Pulse Ox 98.4 F 64 18 141/67 H 97 05/19/19 07:43 05/19/19 07:43 05/19/19 07:43 05/19/19 07:43 05/19/19 07:53 Laboratory Results - last 24 hr 05/18/19 05:40: Total Counted 100, Neutrophils % (Manual) 75, Lymphocytes % (Manual) 20, Monocytes % (Manual) 4, Eosinophils % (Manual) 1, Platelet Estimate Normal, RBC Morphology Normal 05/19/19 05:45: WBC 10.9 H D, RBC 4.26, Hgb 12.6, Hct 41.2, MCV 96.8, MCH 29.5, MCHC 30.5 L, RDW 13.6, Plt Count 156, MPV 11.0 H, Neut % (Auto) 67.5, Lymph % (Auto) 24.7, [place] % (Auto) 5.1, Eos % (Auto) 2.1, Baso % (Auto) 0.4, Neut # (Auto) 7.4, Lymph # (Auto) 2.7, [place] # (Auto) 0.6, Eos # (Auto) 0.2, Baso # (Auto) 0.1 05/19/19 05:45: Sodium 138, Potassium 2.7 L*, Chloride 104, Carbon Dioxide 27, Anion Gap 9.7, BUN 28 H D, Creatinine 1.20 H D, Estimated Creat Clear 74, Estimated GFR 44 L, Est GFR ( Amer) 54 L D, Glucose 216 H, Calcium 8.1 L I & O for Last 24 hours: Intake & Output 05/16/19 05/17/19 05/18/19 05/19/19 11:59 11:59 11:59 11:59 Intake Total 2753 / 2753 3846 / 3846 Output Total 500 / 500 2175 / 2175 Balance 2253 / 2253 1671 / 1671 Weight 232 lb 2 oz 236 lb 15.986 oz Microbiology Reports for the Last 24 Hours: Microbiology 05/19/19 03:49 Sputum - Expectorated Sputum Gram Stain - Final 05/17/19 20:15 Blood Blood Culture - Preliminary 05/17/19 19:34 Urine,Catheterized Urine Culture - Preliminary NO GROWTH AFTER 24 HOURS 05/17/19 20:15 Blood Blood Culture - Preliminary - Constitutional no acute distress - *Routine Respiratory Exam Present: CTA bilaterally - *Routine Cardiovascular Exam Present: RRR - *Routine Abdominal Exam Present: soft, normoactive bowel sounds. Absent: tenderness - *Routine Extremities Exam Absent: cyanosis, clubbing, edema - *Routine Skin Exam Present: warm. Absent: rash - *Routine Neurological Exam Present: alert, oriented X3 Assessment and Plan (1) Fall at home Current visit: Yes Status: Acute Category: Medical Code(s): W19.XXXA - Unspecified fall, initial encounter; Y92.009 - Unspecified place in unspecified non-institutional (private) residence as the place of occurrence of the external cause (2) Contusion of left hip Current visit: Yes Status: Acute Qualifiers: Encounter type: initial encounter Qualified Code(s): S70.02XA - Contusion of left hip, initial encounter Category: Medical Code(s): S70.02XA - Contusion of left hip, initial encounter (3) Impaired mobility Current visit: Yes Status: Acute Category: Medical Code(s): Z74.09 - Other reduced mobility (4) Acute renal failure Current visit: Yes Status: Acute Qualifiers: Acute renal failure type: unspecified Qualified Code(s): N17.9 - Acute kidney failure, unspecified Category: Medical Code(s): N17.9 - Acute kidney failure, unspecified (5) Hypokalemia Current visit: Yes Status: Acute Category: Medical Code(s): E87.6 - Hypokalemia (6) Skin candidiasis Current visit: Yes Status: Acute Category: Medical Code(s): B37.2 - Candidiasis of skin and nail (7) Constipation Current visit: Yes Status: Acute Qualifiers: Constipation type: unspecified constipation type Qualified Code(s): K59.00 - Constipation, unspecified Category: Medical Code(s): K59.00 - Constipation, unspecified (8) Leukocytosis Current visit: Yes Status: Acute Qualifiers: Leukocytosis type: unspecified Qualified Code(s): D72.829 - Elevated white blood cell count, unspecified Category: Medical Code(s): D72.829 - Elevated white blood cell count, unspecified (9) Vomiting Current visit: Yes Status: Acute Category: Medical Code(s): R11.10 - Vomiting, unspecified (10) Hypothyroidism Current visit: Yes Status: Chronic Category: Medical Code(s): E03.9 - Hypothyroidism, unspecified (11) Hypertension Current visit: Yes Status: Chronic Category: Medical Code(s): I10 - Essential (primary) hypertension (12) Depression Current visit: Yes Status: Chronic Category: Medical Code(s): F32.9 - Major depressive disorder, single episode, unspecified (13) GERD (gastroesophageal reflux disease) Current visit: Yes Status: Chronic Category: Medical Code(s): K21.9 - Gastro-esophageal reflux disease without esophagitis - Assessment and plan all Dx Assessment and Plan for all problems:: White blood cell count and renal functions are improving. Potassium is still low. We will continue potassium replacement. Preliminary blood cultures show gram-positive cocci. Will start on vancomycin and await final culture results. <Ubaldo Cruz - Last Filed: 05/19/19 13:48> Internal Medicine - PN: Subj *Date: 05/19/19 *Time: 13:44 Exam Vital signs and Labs for Last 24 Hours: Temp Pulse Resp BP Pulse Ox 98.4 F 64 18 141/67 H 97 05/19/19 07:43 05/19/19 07:43 05/19/19 07:43 05/19/19 07:43 05/19/19 07:53 Laboratory Results - last 24 hr 05/19/19 05:45: WBC 10.9 H D, RBC 4.26, Hgb 12.6, Hct 41.2, MCV 96.8, MCH 29.5, MCHC 30.5 L, RDW 13.6, Plt Count 156, MPV 11.0 H, Neut % (Auto) 67.5, Lymph % (Auto) 24.7, [place] % (Auto) 5.1, Eos % (Auto) 2.1, Baso % (Auto) 0.4, Neut # (Auto) 7.4, Lymph # (Auto) 2.7, [place] # (Auto) 0.6, Eos # (Auto) 0.2, Baso # (Auto) 0.1 05/19/19 05:45: Sodium 138, Potassium 2.7 L*, Chloride 104, Carbon Dioxide 27, Anion Gap 9.7, BUN 28 H D, Creatinine 1.20 H D, Estimated Creat Clear 74, Estim ated GFR 44 L, Est GFR ( Amer) 54 L D, Glucose 216 H, Calcium 8.1 L I & O for Last 24 hours: Intake & Output 05/17/19 05/18/19 05/19/19 05/20/19 11:59 11:59 11:59 11:59 Intake Total 2753 / 2753 3846 / 3846 Output Total 500 / 500 2675 / 2675 Balance 2253 / 2253 1171 / 1171 Weight 232 lb 2 oz 236 lb 15.986 oz Microbiology Reports for the Last 24 Hours: Microbiology 05/17/19 20:15 Blood Blood Culture - Preliminary Gram Positive Cocci 05/17/19 20:15 Blood Blood Culture - Preliminary Gram Positive Cocci 05/19/19 03:49 Sputum - Expectorated Sputum Gram Stain - Final 05/17/19 19:34 Urine,Catheterized Urine Culture - Preliminary NO GROWTH AFTER 24 HOURS Assessment and Plan (1) Fall at home Current visit: Yes Status: Acute Category: Medical Code(s): W19.XXXA - Unspecified fall, initial encounter; Y92.009 - Unspecified place in unspecified non-institutional (private) residence as the place of occurrence of the external cause (2) Contusion of left hip Current visit: Yes Status: Acute Qualifiers: Encounter type: initial encounter Qualified Code(s): S70.02XA - Contusion of left hip, initial encounter Category: Medical Code(s): S70.02XA - Contusion of left hip, initial encounter (3) Impaired mobility Current visit: Yes Status: Acute Category: Medical Code(s): Z74.09 - Other reduced mobility (4) Acute renal failure Current visit: Yes Status: Acute Qualifiers: Acute renal failure type: unspecified Qualified Code(s): N17.9 - Acute kidney failure, unspecified Category: Medical Code(s): N17.9 - Acute kidney failure, unspecified (5) Hypokalemia Current visit: Yes Status: Acute Category: Medical Code(s): E87.6 - Hypokalemia (6) Skin candidiasis Current visit: Yes Status: Acute Category: Medical Code(s): B37.2 - Candidiasis of skin and nail (7) Constipation Current visit: Yes Status: Acute Qualifiers: Constipation type: unspecified constipation type Qualified Code(s): K59.00 - Constipation, unspecified Category: Medical Code(s): K59.00 - Constipation, unspecified (8) Leukocytosis Current visit: Yes Status: Acute Qualifiers: Leukocytosis type: unspecified Qualified Code(s): D72.829 - Elevated white blood cell count, unspecified Category: Medical Code(s): D72.829 - Elevated white blood cell count, unspecified (9) Vomiting Current visit: Yes Status: Acute Category: Medical Code(s): R11.10 - Vomiting, unspecified (10) Hypothyroidism Current visit: Yes Status: Chronic Category: Medical Code(s): E03.9 - Hypothyroidism, unspecified (11) Hypertension Current visit: Yes Status: Chronic Category: Medical Code(s): I10 - Essential (primary) hypertension (12) Depression Current visit: Yes Status: Chronic Category: Medical Code(s): F32.9 - Major depressive disorder, single episode, unspecified (13) GERD (gastroesophageal reflux disease) Current visit: Yes Status: Chronic Category: Medical Code(s): K21.9 - Gastro-esophageal reflux disease without esophagitis (14) Bacteremia Current visit: Yes Status: Acute Category: Medical Code(s): R78.81 - Bacteremia - Assessment and plan all Dx Assessment and Plan for all problems:: Patient seen and examined this AM. Clinically and subjeectively, she looks and feels better. She was able to ambulate in the hallway with PT using walker. She did have pain in her hip but was tolerable. SHe is not eating much because she does not like the food but denies nausea. Labs improved but K+ still low. Also has Gm+ cocci on blood culture. Clinically, she is afebrile and WBC is decreasing to normal. Blood culture may prove to be a contaminant but will start Vancomycin pending final culture.
--- NOTE | 2019-05-19 08:21 | Pharmacy Consult Notes ---
- Pharmacy Consult Date: 05/19/19 Time: 08:20 Referring provider: DR. PHELAN Reason for Consult:: VANCOMYCIN DOSING Allergies and ADEs:: Allergies Allergy/AdvReac Type Severity Reaction Status Date / Time No Known Allergies Allergy Unverified 05/18/19 07:56 Home Medications:: Home Medications Medication Instructions Recorded Confirmed Type Citalopram Hydrobromide [Celexa] 20 mg PO BID 05/17/19 05/18/19 History Hydrocodone/Acetaminophen 1 each PO Q6HP PRN 05/17/19 05/18/19 History [Hydrocodone-Acetamin 7.5-300] Levothyroxine Sodium 25 mcg PO DAILY 05/17/19 05/17/19 History [Levothyroxine 25mcg (0.025mg) Tab] Lovastatin 40 mg PO DAILY 05/17/19 05/17/19 History Omeprazole [Omeprazole 20mg 20 mg PO DAILY 05/17/19 05/17/19 History Capsule] hydroCHLOROthiazide [HCTZ 25mg 25 mg PO DAILY 05/17/19 05/17/19 History tab] Height: 1.73 m Weight: 107.501 kg Laboratory Results:: Laboratory Results - last 24 hr 05/18/19 05:40: Total Counted 100, Neutrophils % (Manual) 75, Lymphocytes % (Manual) 20, Monocytes % (Manual) 4, Eosinophils % (Manual) 1, Platelet Estimate Normal, RBC Morphology Normal 05/19/19 05:45: WBC 10.9 H D, RBC 4.26, Hgb 12.6, Hct 41.2, MCV 96.8, MCH 29.5, MCHC 30.5 L, RDW 13.6, Plt Count 156, MPV 11.0 H, Neut % (Auto) 67.5, Lymph % (Auto) 24.7, [place] % (Auto) 5.1, Eos % (Auto) 2.1, Baso % (Auto) 0.4, Neut # (Auto) 7.4, Lymph # (Auto) 2.7, [place] # (Auto) 0.6, Eos # (Auto) 0.2, Baso # (Auto) 0.1 05/19/19 05:45: Sodium 138, Potassium 2.7 L*, Chloride 104, Carbon Dioxide 27, Anion Gap 9.7, BUN 28 H D, Creatinine 1.20 H D, Estimated Creat Clear 74, Estimated GFR 44 L, Est GFR ( Amer) 54 L D, Glucose 216 H, Calcium 8.1 L Medical History: Reports:: Hyperlipidemia, Hypertension Denies:: Cancer, Diabetes Mellitus Type 1, Diabetes Mellitus Type 2, Internal Pacemaker, MRSA Assessment and Plan (1) Fall at home Current visit: Yes Status: Acute Category: Medical Code(s): W19.XXXA - Unspecified fall, initial encounter; Y92.009 - Unspecified place in unspecified non-institutional (private) residence as the place of occurrence of the external cause (2) Contusion of left hip Current visit: Yes Status: Acute Qualifiers: Encounter type: initial encounter Qualified Code(s): S70.02XA - Contusion of left hip, initial encounter Category: Medical Code(s): S70.02XA - Contusion of left hip, initial encounter (3) Impaired mobility Current visit: Yes Status: Acute Category: Medical Code(s): Z74.09 - Other reduced mobility (4) Acute renal failure Current visit: Yes Status: Acute Qualifiers: Acute renal failure type: unspecified Qualified Code(s): N17.9 - Acute kidney failure, unspecified Category: Medical Code(s): N17.9 - Acute kidney failure, unspecified (5) Hypokalemia Current visit: Yes Status: Acute Category: Medical Code(s): E87.6 - Hypokalemia (6) Skin candidiasis Current visit: Yes Status: Acute Category: Medical Code(s): B37.2 - Candidiasis of skin and nail (7) Constipation Current visit: Yes Status: Acute Qualifiers: Constipation type: unspecified constipation type Qualified Code(s): K59.00 - Constipation, unspecified Category: Medical Code(s): K59.00 - Constipation, unspecified (8) Leukocytosis Current visit: Yes Status: Acute Qualifiers: Leukocytosis type: unspecified Qualified Code(s): D72.829 - Elevated white blood cell count, unspecified Category: Medical Code(s): D72.829 - Elevated white blood cell count, unspecified (9) Vomiting Current visit: Yes Status: Acute Category: Medical Code(s): R11.10 - Vomiting, unspecified (10) Hypothyroidism Current visit: Yes Status: Chronic Category: Medical Code(s): E03.9 - Hypothyroidism, unspecified (11) Hypertension Current visit: Yes Status: Chronic Category: Medical Code(s): I10 - Essential (primary) hypertension (12) Depression Current visit: Yes Status: Chronic Category: Medical Code(s): F32.9 - Major depressive disorder, single episode, unspecified (13) GERD (gastroesophageal reflux disease) Current visit: Yes Status: Chronic Category: Medical Code(s): K21.9 - Gastro-esophageal reflux disease without esophagitis - Assessment and plan all Dx Assessment and Plan for all problems:: BASED ON PATIENT FACTORS, RECOMMEND VANCOMYCIN 2,000MG IV EVERY 24 HOURS. PHARMACY WILL CONTINUE TO MONITOR AND WILL ADJUST DOSE APPROPRIATE. -DAVID WRIGHT, ANDID
[2019-05-20 06:41] LABS: Basophils % 0.4 % (0.1-2.0); Eosinophils # 0.3 K/mm3 (0.0-0.4); Eosinophils % 3.6 % (0.1-12.0); Hematocrit 35.9 % (37.0-47.0); Hemoglobin 11.4 g/dL (12.2-16.2); Lymphocytes # 2.1 K/mm3 (0.7-4.5); Lymphocytes % 23.6 % (10-50); Mean Corpuscular HGB Conc 31.9 g/dL (31.8-35.4); Mean Corpuscular Volume 90.8 fl (81-99); Mean Platelet Volume 10.2 fl (7.4-10.4); Monocytes # 0.4 K/mm3 (0.1-1.0); Monocytes % 4.9 % (1.7-9.3); Neutrophils # 5.9 K/mm3 (1.8-7.8); Neutrophils % 67.6 % (37.0-80.0); Platelet Count 154 K/mm3 (142-424); Red Blood Count 3.95 M/mm3 (4.20-5.40); Red Cell Distribution Width 13.5 % (11.5-17.5); White Blood Count 8.8 K/mm3 (4.8-10.8)
[2019-05-20 06:53] LABS: Anion Gap 6.8 mEq/L (5-15); Calcium 8.2 mg/dL (8.5-10.1)
--- NOTE | 2019-05-20 08:16 | Progress Note ---
<Cydney Joaquin - Last Filed: 05/20/19 08:15> Internal Medicine - PN: Subj *Date: 05/20/19 *Time: 08:15 Interval history: Patient states she feels well this morning other than some low back pain and aching in her left leg. She slept a little bit better last night and ate a good breakfast this morning. She is anxious to go home. Exam Vital signs and Labs for Last 24 Hours: Temp Pulse Resp BP Pulse Ox 98.4 F 69 20 118/45 L 94 L 05/20/19 04:00 05/20/19 04:00 05/20/19 04:00 05/20/19 04:00 05/20/19 04:00 Laboratory Results - last 24 hr 05/20/19 06:00: Sodium 141, Potassium 3.8 D, Chloride 109 H, Carbon Dioxide 29, Anion Gap 6.8, BUN 13 D, Creatinine 0.88 D, Estimated Creat Clear 90, Estimated GFR 64, Est GFR ( Amer) 77 D, Glucose 92, Calcium 8.2 L 05/20/19 06:00: WBC 8.8, RBC 3.95 L, Hgb 11.4 L, Hct 35.9 L, MCV 90.8, MCH 28.9, MCHC 31.9, RDW 13.5, Plt Count 154, MPV 10.2, Neut % (Auto) 67.6, Lymph % (Auto) 23.6, [place] % (Auto) 4.9, Eos % (Auto) 3.6, Baso % (Auto) 0.4, Neut # (Auto) 5.9, Lymph # (Auto) 2.1, [place] # (Auto) 0.4, Eos # (Auto) 0.3, Baso # (Auto) 0.0 I & O for Last 24 hours: Intake & Output 05/17/19 05/18/19 05/19/19 05/20/19 11:59 11:59 11:59 11:59 Intake Total 2753 / 2753 3846 / 3846 2925 / 2925 Output Total 500 / 500 2675 / 2675 600 / 600 Balance 2253 / 2253 1171 / 1171 2325 / 2325 Weight 232 lb 2 oz 236 lb 15.986 oz 239 lb 8 oz Microbiology Reports for the Last 24 Hours: Microbiology 07/09/19 19:34 Urine,Catheterized Urine Culture - Final NO GROWTH AFTER 48 HOURS 05/17/19 20:15 Blood Blood Culture - Preliminary Gram Positive Cocci 05/17/19 20:15 Blood Blood Culture - Preliminary Gram Positive Cocci 05/19/19 03:49 Sputum - Expectorated Sputum Gram Stain - Final - Constitutional no acute distress - *Routine Respiratory Exam Present: CTA bilaterally - *Routine Cardiovascular Exam Present: RRR - *Routine Abdominal Exam Present: soft, normoactive bowel sounds. Absent: tenderness - *Routine Extremities Exam Absent: cyanosis, clubbing, edema - *Routine Skin Exam Present: warm. Absent: rash - *Routine Neurological Exam Present: alert, oriented X3 Assessment and Plan (1) Fall at home Current visit: Yes Status: Acute Category: Medical Code(s): W19.XXXA - Unspecified fall, initial encounter; Y92.009 - Unspecified place in unspecified non-institutional (private) residence as the place of occurrence of the external cause (2) Contusion of left hip Current visit: Yes Status: Acute Qualifiers: Encounter type: initial encounter Qualified Code(s): S70.02XA - Contusion of left hip, initial encounter Category: Medical Code(s): S70.02XA - Contusion of left hip, initial encounter (3) Impaired mobility Current visit: Yes Status: Acute Category: Medical Code(s): Z74.09 - Other reduced mobility (4) Acute renal failure Current visit: Yes Status: Acute Qualifiers: Acute renal failure type: unspecified Qualified Code(s): N17.9 - Acute kidney failure, unspecified Category: Medical Code(s): N17.9 - Acute kidney failure, unspecified (5) Hypokalemia Current visit: Yes Status: Acute Category: Medical Code(s): E87.6 - Hypokalemia (6) Skin candidiasis Current visit: Yes Status: Acute Category: Medical Code(s): B37.2 - Candidiasis of skin and nail (7) Constipation Current visit: Yes Status: Acute Qualifiers: Constipation type: unspecified constipation type Qualified Code(s): K59.00 - Constipation, unspecified Category: Medical Code(s): K59.00 - Constipation, unspecified (8) Leukocytosis Current visit: Yes Status: Acute Qualifiers: Leukocytosis type: unspecified Qualified Code(s): D72.829 - Elevated white blood cell count, unspecified Category: Medical Code(s): D72.829 - Elevated white blood cell count, unspecified (9) Vomiting Current visit: Yes Status: Acute Category: Medical Code(s): R11.10 - Vomiting, unspecified (10) Hypothyroidism Current visit: Yes Status: Chronic Category: Medical Code(s): E03.9 - Hypothyroidism, unspecified (11) Hypertension Current visit: Yes Status: Chronic Category: Medical Code(s): I10 - Essential (primary) hypertension (12) Depression Current visit: Yes Status: Chronic Category: Medical Code(s): F32.9 - Major depressive disorder, single episode, unspecified (13) GERD (gastroesophageal reflux disease) Current visit: Yes Status: Chronic Category: Medical Code(s): K21.9 - Gastro-esophageal reflux disease without esophagitis (14) Bacteremia Current visit: Yes Status: Acute Category: Medical Code(s): R78.81 - Bacteremia - Assessment and plan all Dx Assessment and Plan for all problems:: Still awaiting blood culture results. Will discuss further care with Dr. Cruz. <Ubaldo Cruz - Last Filed: 05/20/19 13:18> Internal Medicine - PN: Subj *Date: 05/20/19 *Time: 13:16 Exam Vital signs and Labs for Last 24 Hours: Temp Pulse Resp BP Pulse Ox 99.0 F 62 18 179/92 H 97 05/20/19 08:00 05/20/19 08:00 05/20/19 08:00 05/20/19 08:00 05/20/19 08:00 Laboratory Results - last 24 hr 05/20/19 06:00: Sodium 141, Potassium 3.8 D, Chloride 109 H, Carbon Dioxide 29, Anion Gap 6.8, BUN 13 D, Creatinine 0.88 D, Estimated Creat Clear 90, E stimated GFR 64, Est GFR ( Amer) 77 D, Glucose 92, Calcium 8.2 L 05/20/19 06:00: WBC 8.8, RBC 3.95 L, Hgb 11.4 L, Hct 35.9 L, MCV 90.8, MCH 28.9, MCHC 31.9, RDW 13.5, Plt Count 154, MPV 10.2, Neut % (Auto) 67.6, Lymph % (Auto) 23.6, [place] % (Auto) 4.9, Eos % (Auto) 3.6, Baso % (Auto) 0.4, Neut # (Auto) 5.9, Lymph # (Auto) 2.1, [place] # (Auto) 0.4, Eos # (Auto) 0.3, Baso # (Auto) 0.0 I & O for Last 24 hours: Intake & Output 05/18/19 05/19/19 05/20/19 05/21/19 11:59 11:59 11:59 11:59 Intake Total 2753 / 2753 3846 / 3846 3525 / 3765 240 / 240 Output Total 500 / 500 2675 / 2675 1125 / 1125 Balance 2253 / 2253 1171 / 1171 2400 / 2640 240 / 240 Weight 232 lb 2 oz 236 lb 15.986 oz 239 lb 8 oz Microbiology Reports for the Last 24 Hours: Microbiology 05/17/19 20:15 Blood Blood Culture - Preliminary Gram Positive Cocci 05/17/19 20:15 Blood Blood Culture - Preliminary Gram Positive Cocci 05/19/19 03:49 Sputum - Expectorated Sputum Gram Stain - Final 05/19/19 03:49 Sputum - Expectorated Sputum Sputum Culture - Preliminary 05/17/19 19:34 Urine,Catheterized Urine Culture - Final NO GROWTH AFTER 48 HOURS Assessment and Plan (1) Fall at home Current visit: Yes Status: Acute Category: Medical Code(s): W19.XXXA - Unspecified fall, initial encounter; Y92.009 - Unspecified place in unspecified non-institutional (private) residence as the place of occurrence of the external cause (2) Contusion of left hip Current visit: Yes Status: Acute Qualifiers: Encounter type: initial encounter Qualified Code(s): S70.02XA - Contusion of left hip, initial encounter Category: Medical Code(s): S70.02XA - Contusion of left hip, initial encounter (3) Impaired mobility Current visit: Yes Status: Acute Category: Medical Code(s): Z74.09 - Other reduced mobility (4) Acute renal failure Current visit: Yes Status: Acute Qualifiers: Acute renal failure type: unspecified Qualified Code(s): N17.9 - Acute kidney failure, unspecified Category: Medical Code(s): N17.9 - Acute kidney failure, unspecified (5) Hypokalemia Current visit: Yes Status: Acute Category: Medical Code(s): E87.6 - Hypokalemia (6) Skin candidiasis Current visit: Yes Status: Acute Category: Medical Code(s): B37.2 - Candidiasis of skin and nail (7) Constipation Current visit: Yes Status: Acute Qualifiers: Constipation type: unspecified constipation type Qualified Code(s): K59.00 - Constipation, unspecified Category: Medical Code(s): K59.00 - Constipation, unspecified (8) Leukocytosis Current visit: Yes Status: Acute Qualifiers: Leukocytosis type: unspecified Qualified Code(s): D72.829 - Elevated white blood cell count, unspecified Category: Medical Code(s): D72.829 - Elevated white blood cell count, unspecified (9) Vomiting Current visit: Yes Status: Acute Category: Medical Code(s): R11.10 - Vomiting, unspecified (10) Hypothyroidism Current visit: Yes Status: Chronic Category: Medical Code(s): E03.9 - Hypothyroidism, unspecified (11) Hypertension Current visit: Yes Status: Chronic Category: Medical Code(s): I10 - Essential (primary) hypertension (12) Depression Current visit: Yes Status: Chronic Category: Medical Code(s): F32.9 - Major depressive disorder, single episode, unspecified (13) GERD (gastroesophageal reflux disease) Current visit: Yes Status: Chronic Category: Medical Code(s): K21.9 - Gastro-esophageal reflux disease without esophagitis (14) Bacteremia Current visit: Yes Status: Acute Category: Medical Code(s): R78.81 - Bacteremia - Assessment and plan all Dx Assessment and Plan for all problems:: Patient seen and examined. Her acute renal failure and hypokalemia have resolved. Still awaiting blood cultures as she now has both samples growing a Gm + coccus. Will continue Vanc for now. Continue PT.
[2019-05-21 07:44] LABS: Anion Gap 10.2 mEq/L (5-15); Calcium 8.5 mg/dL (8.5-10.1)
--- NOTE | 2019-05-21 08:48 | Progress Note ---
Internal Medicine - PN: Subj *Date: 05/21/19 *Time: 08:50 Interval history: She is feeling better. She has been up to the bathroom independently. She is tolerating her diet. Still awaiting final culture results. Exam Vital signs and Labs for Last 24 Hours: Temp Pulse Resp BP Pulse Ox 98.4 F 80 16 126/65 95 05/21/19 07:20 05/21/19 07:20 05/21/19 07:20 05/21/19 07:20 05/21/19 07:20 Laboratory Results - last 24 hr 05/21/19 06:02: Sodium 143, Potassium 4.2, Chloride 109 H, Carbon Dioxide 28, Anion Gap 10.2, BUN 12, Creatinine 0.88, Estimated Creat Clear 91, Estimated GFR 64, Est GFR ( Amer) 77, Glucose 103, Calcium 8.5 I & O for Last 24 hours: Intake & Output 05/18/19 05/19/19 05/20/19 05/21/19 11:59 11:59 11:59 11:59 Intake Total 2753 / 2753 3846 / 3846 3525 / 3765 1200 / 1200 Output Total 500 / 500 2675 / 2675 1125 / 1125 1800 / 1800 Balance 2253 / 2253 1171 / 1171 2400 / 2640 -600 / -600 Weight 232 lb 2 oz 236 lb 15.986 oz 239 lb 8 oz 242 lb 5 oz Microbiology Reports for the Last 24 Hours: Microbiology 05/17/19 20:15 Blood Blood Culture - Preliminary Gram Positive Cocci 05/17/19 20:15 Blood Blood Culture - Preliminary Gram Positive Cocci 05/19/19 03:49 Sputum - Expectorated Sputum Gram Stain - Final 05/19/19 03:49 Sputum - Expectorated Sputum Sputum Culture - Preliminary Narrative: She is in good spirits. Color is normal. No distress. Lungs are clear to auscultation. Heart is regular with no ectopy. Abdomen is soft and nondistended with no unusual masses or tenderness. Extremities no edema. Assessment and Plan (1) Fall at home Current visit: Yes Status: Acute Category: Medical Code(s): W19.XXXA - Unspecified fall, initial encounter; Y92.009 - Unspecified place in unspecified non-institutional (private) residence as the place of occurrence of the external cause (2) Contusion of left hip Current visit: Yes Status: Acute Qualifiers: Encounter type: initial encounter Qualified Code(s): S70.02XA - Contusion of left hip, initial encounter Category: Medical Code(s): S70.02XA - Contusion of left hip, initial encounter (3) Impaired mobility Current visit: Yes Status: Acute Category: Medical Code(s): Z74.09 - Other reduced mobility (4) Acute renal failure Current visit: Yes Status: Acute Qualifiers: Acute renal failure type: unspecified Qualified Code(s): N17.9 - Acute kidney failure, unspecified Category: Medical Code(s): N17.9 - Acute kidney failure, unspecified (5) Hypokalemia Current visit: Yes Status: Acute Category: Medical Code(s): E87.6 - Hypokalemia (6) Skin candidiasis Current visit: Yes Status: Acute Category: Medical Code(s): B37.2 - Candidiasis of skin and nail (7) Constipation Current visit: Yes Status: Acute Qualifiers: Constipation type: unspecified constipation type Qualified Code(s): K59.00 - Constipation, unspecified Category: Medical Code(s): K59.00 - Constipation, unspecified (8) Leukocytosis Current visit: Yes Status: Acute Qualifiers: Leukocytosis type: unspecified Qualified Code(s): D72.829 - Elevated white blood cell count, unspecified Category: Medical Code(s): D72.829 - Elevated white blood cell count, unspecified (9) Vomiting Current visit: Yes Status: Acute Category: Medical Code(s): R11.10 - Vomiting, unspecified (10) Hypothyroidism Current visit: Yes Status: Chronic Category: Medical Code(s): E03.9 - Hypothyroidism, unspecified (11) Hypertension Current visit: Yes Status: Chronic Category: Medical Code(s): I10 - Essential (primary) hypertension (12) Depression Current visit: Yes Status: Chronic Category: Medical Code(s): F32.9 - Major depressive disorder, single episode, unspecified (13) GERD (gastroesophageal reflux disease) Current visit: Yes Status: Chronic Category: Medical Code(s): K21.9 - G rosendo-esophageal reflux disease without esophagitis (14) Bacteremia Current visit: Yes Status: Acute Category: Medical Code(s): R78.81 - Bacteremia - Assessment and plan all Dx Assessment and Plan for all problems:: Clinically she is much improved. Morning labs show her potassium to be normal. Her acute renal failure has resolved. I spoke with the brian and her blood culture appears to be growing either staph hominis or staph saprophyticus. Final results should be available this morning. Will likely be able to discharge home later today on oral antibiotics.
--- NOTE | 2019-05-23 14:17 | Discharge Summary ---
General - General Admission date:: 05/17/19 <Ubaldo Cruz - 05/24/19 20:04> 05/17/19 <Cydney Joaquin - 05/23/19 14:19> Discharge date: 05/21/19 <EmaniCydney - 05/23/19 14:19> HPI HPI: Ms. Rain is a 68-year-old patient with a history of depression, hypothyroidism, hypertension, GERD, and hyperlipidemia who was brought to [facility] emergency room via EMS when she was unable to walk for 2 to 3 weeks. She stated she laid in a lump for this time and ate and drank minimally. She stated her bowels did not move. She was unable to tell if she was incontinent of urine or if she was able to go to the bathroom. She described vomiting after drinking water. She described eating pineapple. Patient stated this started about 3 weeks ago when she slid to the ground landing on her buttocks. She stated it was not a fall. She was unable to get up and walk and therefore she scooted. She stated she always locks all the doors and therefore no one could get in. She did finally find her phone and was able to contact a friend who notified EMS. They were able to get in through a window and bring her to the hospital. With evaluation in the emergency room x-rays and CTs did not reveal any fractures. She was found to be in acute renal failure and with hypokalemia. She was thus admitted for further evaluation and treatment. <Cydney Joaquin - 05/23/19 14:19> Hospital Course Hospital Course: The patient's hip x-ray and chest x-ray showed nothing acute. She had a CT of the abdomen and pelvis which showed a distended gallbladder with mild prominence of the common bile duct. There was also fatty liver and a mild amount of retained colonic feces. She had a CT of the left hip which showed mild osteoarthritis. She had difficulty ambulating due to hip pain. Her renal failure appeared to be acute prerenal related to dehydration. Her renal failure did resolve with hydration her hypokalemia resolved with potassium replacement. PT and Ortho were both consulted. Dr. Watts saw the patient and felt that her imaging revealed no acute bony injury or joint injury. She was able to mobilize with physical therapy using a walker. He recommended conservative management and mobilization weightbearing as tolerated with a walker. Her preliminary blood cultures were growing gram-positive cocci, therefore she was started on vancomycin. Her final blood cultures were growing staph hominis. Dr. Cruz felt she could be discharged home on oral antibiotics. <Cydney Joaquin - 05/23/19 14:19> Objective Vital signs: Temp Pulse Resp BP Pulse Ox 98.4 F 80 16 126/65 95 05/21/19 07:20 05/21/19 07:20 05/21/19 07:20 05/21/19 07:20 05/21/19 07:20 <Ubaldo Cruz - 05/24/19 20:04> Temp Pulse Resp BP Pulse Ox 98.4 F 80 16 126/65 95 05/21/19 07:20 05/21/19 07:20 05/21/19 07:20 05/21/19 07:20 05/21/19 07:20 <Cydney Joaquin - 05/23/19 14:19> Narrative: She is in good spirits. Color is normal. No distress. Lungs are clear to auscultation. Heart is regular with no ectopy. Abdomen is soft and nondistended with no unusual masses or tenderness. Extremities no edema. <Cydney Joaquin - 05/23/19 14:19> DS: Diagnosis - Discharge Diagnosis (1) Fall at home Status: Acute (2) Contusion of left hip Status: Acute (3) Impaired mobility Status: Acute (4) Acute renal failure Status: Acute (5) Hypokalemia Status: Acute (6) Skin candidiasis Status: Acute (7) Constipation Status: Acute (8) Leukocytosis Status: Acute (9) Vomiting Status: Acute (10) Hypothyroidism Status: Chronic (11) Hypertension Status: Chronic (12) Depression Status: Chronic (13) GERD (gastroesophageal reflux disease) Status: Chronic (14) Bacteremia Status: Acute <Cydney Joaquin - 05/23/19 14:09> (1) Fall at home Status: Acute (2) Contusion of left hip Status: Acute (3) Impaired mobility Status: Acute (4) Acute renal failure Status: Acute (5) Hypokalemia Status: Acute (6) Skin candidiasis Status: Acute (7) Constipation Status: Acute (8) Leukocytosis Status: Acute (9) Vomiting Status: Acute (10) Hypothyroidism Status: Chronic (11) Hypertension Status: Chronic (12) Depression Status: Chronic (13) GERD (gastroesophageal reflux disease) Status: Chronic (14) Bacteremia Status: Acute <Ubaldo Cruz - 05/24/19 20:04> Discharge Plan - Patient Discharge Instructions ACTIVITY: Continue current activity <Cydney Joaquin - 05/23/19 14:19> DIET: continue same diet <Cydney Joaquin - 05/23/19 14:19> Patient Instructions: Acute Renal Failure, DI for Hypokalemia, Hypokalemia <Ubaldo Cruz - 05/24/19 20:04> Forms: <Ubaldo Cruz - 05/24/19 20:04> - Follow up Plan Follow up with: Traci Maier [Primary Care Provider] - 1 week <Ubaldo Cruz - 05/24/19 20:04> Disposition: Home, Self-Care <Ubaldo Cruz - 05/24/19 20:04> Home Medications: Home Medications Medication Instructions Recorded Confirmed Type Citalopram Hydrobromide [Celexa] 20 mg PO BID 05/17/19 05/18/19 History Hydrocodone/Acetaminophen 1 each PO Q6HP PRN 05/17/19 05/18/19 History [Hydrocodone-Acetamin 7.5-300] Levothyroxine Sodium 25 mcg PO DAILY 05/17/19 05/17/19 History [Levothyroxine 25mcg (0.025mg) Tab] Lovastatin 40 mg PO DAILY 05/17/19 05/17/19 History Omeprazole [Omeprazole 20mg 20 mg PO DAILY 05/17/19 05/17/19 History Capsule] hydroCHLOROthiazide [HCTZ 25mg 25 mg PO DAILY 05/17/19 05/17/19 History tab] levoFLOXacin [Levaquin 500mg 500 mg PO DAILY #5 tab 05/21/19 Rx tab] <Ubaldo Cruz - 05/24/19 20:04> Prescriptions/Medication Reconciliation: New levoFLOXacin [Levaquin 500mg tab] 500 mg PO DAILY #5 tab Continued Levothyroxine Sodium [Levothyroxine 25mcg (0.025mg) Tab] 25 mcg PO DAILY hydroCHLOROthiazide [HCTZ 25mg tab] 25 mg PO DAILY Lovastatin 40 mg PO DAILY Hydrocodone/Acetaminophen [Hydrocodone-Acetamin 7.5-300] 1 each PO Q6HP PRN PRN Reason: pain Citalopram Hydrobromide [Celexa] 20 mg PO BID Omeprazole [Omeprazole 20mg Capsule] 20 mg PO DAILY <Ubaldo Cruz - 05/24/19 20:04> - Additional Information Additional Information: Concur with plan for discharge as outlined above. <Ubaldo Cruz - 05/24/19 20:04>
== END 2019-05-21 14:34 | disposition home or self-care (01) | DRG 683 ==
LOC: ER 19:28 → 2ND 23:25
PROVIDERS: ADMIT Family Medicine; ATTEND Family Medicine
CPT/HCPCS: 36415; 71010; 71045; 73502; 73700; 74176; 80048; 80053; 81001; 82550; 83605; 83690; 83735; 84439; 84443; 85007; 85025; 87040; 87070; 87077; 87086; 87186; 87205; 93005; 96365; 97161; 99285; J3370